=== PATIENT | female | born 1950 | race Two or more races ===

== ENCOUNTER 2021-11-24 05:45 | Day surgery (SDC) | payer OTHER ==
[~2021-11-24] VITALS: Ht 160 cm; Wt 113.4 kg
[~2021-11-24 05:45] MED LIST: COZAAR25 MG PO; GABAPENTIN300 M2 PO; LASIX20 MG PO; LOPID; METFORMIN HCL500 M3 PO; NORVASC2.5 M1 PO
[2021-11-24] MEDS ORDERED: CLEOCIN HCL300 MG PO (10:52)
[2021-11-24] MEDS ORDERED: CILOXAN5 ML OTIC (10:52)
== END 2021-11-24 15:50 | disposition home or self-care (01) ==
LOC: CIR.AMB 05:45
PROVIDERS: ATTEND Otolaryngology Otology & Neurotology
DX: H72.02 Central perforation of tympanic membrane, left ear (principal); H90.A12 Conductive hearing loss, unilateral, left ear with restricted hearing on the contralateral side; Z88.0 Allergy status to penicillin; I10 Essential (primary) hypertension; G47.33 Obstructive sleep apnea (adult) (pediatric); E66.9 Obesity, unspecified; E11.9 Type 2 diabetes mellitus without complications